=== PATIENT | male | born 1985 ===

== ENCOUNTER 2021-05-24 16:18 | Emergency (ER) | payer MEDICAID, OTHER ==
[~2021-05-24] VITALS: Ht 198.1 cm; Wt 195.0 kg
[2021-05-24] MEDS ORDERED: methylPREDNISolone SOD SUCC 125 MG/2 ML VL IM ONE (22:30)
[2021-05-24] MEDS ORDERED: AZITTAB PO (23:07)
[2021-05-24] MEDS ORDERED: IBUP800T27 PO (23:07)
[2021-05-24 23:45] VITALS: BP 152/99
== END 2021-05-24 23:49 | disposition home or self-care (01) ==
LOC: ER 16:21
DX: J06.9 Acute upper respiratory infection, unspecified (principal); E66.9 Obesity, unspecified; J45.909 Unspecified asthma, uncomplicated; Z68.42 Body mass index [BMI] 45.0-49.9, adult; Z20.822 Contact with and (suspected) exposure to COVID-19
CPT/HCPCS: 36415; 71045; 87426; 96372; 99284; J2930